=== PATIENT | male | born 2000 | race Caucasian/White ===

== ENCOUNTER 2018-10-23 14:45 | Emergency (ER) | payer OTHER ==
[~2018-10-23] VITALS: Ht 175.3 cm; Wt 87.3 kg
[2018-10-23 14:51] VITALS: TEMP 98.6
[2018-10-23 15:55] VITALS: BP 121/79; PULSE 86
== END 2018-10-23 16:06 | disposition home or self-care (01) ==
LOC: COL.ER 14:45
DX: S61.412A Laceration without foreign body of left hand, initial encounter (principal); Z23 Encounter for immunization; W26.0XXA Contact with knife, initial encounter; Y92.219 Unspecified school as the place of occurrence of the external cause